=== PATIENT | male | born 1970 | race African-American/Black ===

== ENCOUNTER 2021-08-08 11:46 | Emergency (ER) | payer BC ==
[~2021-08-08] VITALS: Ht 195.6 cm; Wt 134.9 kg
[2021-08-08] MEDS: IV NORMAL SALINE 1,000ML 1,000 ML IV SCH (12:18)
[2021-08-08] MEDS: ASPIRIN CHEWABLE 81 MG TABLET. PO ONE (12:21)
--- NOTE | 2021-08-08 12:35 | PHYS DOC ---
General Adult EDM: Chief Complaint: CHEST PAIN HPI: HPI: Patient is a 50-year-old male who presents to the emergency department for chest tightness. Patient reports that he has been having chest pain over several days. He rates it 8 out of 10. It is generalized. Worse with cough and movement. It is relieved when he relaxes. He reports that he has experienced a nonproductive cough and shortness of breath since having COVID in November of last year. He is also an occasional smoker. Denies any medical history. He denies fever, nausea, vomiting. Review of Systems: Review of Systems: Constitutional: See HPI Respiratory: See HPI Cardiovascular: See HPI GI: See HPI Musculoskeletal: See HPI Current Medications: Current Meds: Current Medications Medications (Trade) Dose Ordered Sig/Luigi Start Time Stop Time Status Last Admin Dose Admin Aspirin (Aspirin Chewable) 324 mg 1X ONCE 08/08/21 12:15 08/08/21 12:16 DC 08/08/21 12:21 324 MG Sodium Chloride 1,000 ml @ 100 mls/hr Q10H 08/08/21 12:15 08/08/21 22:14 08/08/21 12:18 100 MLS/HR Allergies: Allergies: Allergies Coded Allergies Type Severity Reaction Last Updated Verified No Known Drug Allergies 08/08/21 No Physical Exam: PE: Constitutional: Well developed, well nourished, no acute distress, non-toxic appearance. [] HENT: Normocephalic, atraumatic, bilateral external ears normal, oropharynx moist, no oral exudates, nose normal. [] Eyes: PERRL, EOMI, conjunctiva normal, no discharge. [] Neck: Normal range of motion, no tenderness, supple, no stridor. [] Cardiovascular:Heart rate regular rhythm, no murmur [] Lungs & Thorax: Bilateral breath sounds clear to auscultation [] Abdomen: Bowel sounds normal, soft, no tenderness, no masses, no pulsatile masses. [] Skin: Warm, dry, no erythema, no rash. [] Back: No tenderness, normal range of motion Extremities: No tenderness, no cyanosis, no clubbing, ROM intact, no edema. [] Neurologic: Alert and oriented X 3, normal motor function, normal sensory function, no focal deficits noted. [] Psychologic: Affect normal, judgement normal, mood normal. [] Current Patient Data: Labs: Laboratory Tests Test 08/08/21 12:20 White Blood Count 8.2 x10^3/uL Red Blood Count 4.69 x10^6/uL Hemoglobin 13.5 g/dL Hematocrit 41.3 % Mean Corpuscular Volume 88 fL Mean Corpuscular Hemoglobin 29 pg Mean Corpuscular Hemoglobin Concent 33 g/dL Red Cell Distribution Width 13.1 % Platelet Count 196 x10^3/uL Neutrophils (%) (Auto) 70 % Lymphocytes (%) (Auto) 22 % Monocytes (%) (Auto) 6 % Eosinophils (%) (Auto) 2 % Basophils (%) (Auto) 1 % Neutrophils # (Auto) 5.7 x10^3uL Lymphocytes # (Auto) 1.8 x10^3/uL Monocytes # (Auto) 0.5 x10^3/uL Eosinophils # (Auto) 0.1 x10^3/uL Basophils # (Auto) 0.1 x10^3/uL D-Dimer (Daksha) 0.79 mg/L Sodium Level 142 mmol/L Potassium Level 2.8 mmol/L Chloride Level 107 mmol/L Carbon Dioxide Level 31 mmol/L Anion Gap 4 Blood Urea Nitrogen 10 mg/dL Creatinine 1.4 mg/dL Estimated GFR (Cockcroft-Gault) 64.9 BUN/Creatinine Ratio 7 Glucose Level 103 mg/dL Calcium Level 8.0 mg/dL Magnesium Level 2.2 mg/dL Total Bilirubin 1.1 mg/dL Aspartate Amino Transf (AST/SGOT) 30 U/L Alanine Aminotransferase (ALT/SGPT) 42 U/L Alkaline Phosphatase 109 U/L Troponin I High Sensitivity 15 ng/L Total Protein 6.4 g/dL Albumin 3.1 g/dL Albumin/Globulin Ratio 0.9 Current Medications Medications (Trade) Dose Ordered Sig/Luigi Route PRN Reason Start Time Stop Time Status Last Admin Dose Admin Aspirin (Aspirin Chewable) 324 mg 1X ONCE PO 08/08/21 12:15 08/08/21 12:16 DC 08/08/21 12:21 Sodium Chloride 1,000 ml @ 100 mls/hr Q10H IV 08/08/21 12:15 08/08/21 22:14 08/08/21 12:18 Iohexol (Omnipaque 350 Mg/ml) 100 ml 1X ONCE IV 08/08/21 13:45 08/08/21 13:50 DC 08/08/21 13:56 Potassium Chloride 100 ml @ 50 mls/hr Q1H IV 08/08/21 14:30 08/08/21 16:29 Potassium Chloride (Klor-Con) 30 meq 1X ONCE PO 08/08/21 14:30 08/08/21 14:31 DC EKG: EKG: EKG performed by ER staff at 1211 shows sinus rhythm, no STEMI read by Dr. Zelaya [] Radiology/Procedures: Radiology/Procedures: []PROCEDURE: CT ANGIOGRAPHY CHEST EXAMINATION: CTA Chest With IV contrast INDICATION:50 years, Male, chest pain, elevated d-dimer, evaluate for pulmonary embolism. COMPARISON: None. TECHNIQUE: Spiral CTA was obtained from the jugular notch through the posterior costophrenic recess. 3-D MIPS, sagittal and coronal reformats were obtained. Exposure: One or more of the following individualized dose reduction techniques were utilized for this examination: 1. Automated exposure control 2. Adjustment of the mA and/or kV according to patient size 3. Use of iterative reconstruction technique. FINDINGS: LUNGS/PLEURA: Central airways are patent. Linear atelectatic changes in the right lower lobe. No focal consolidation, pleural effusion or pneumothorax. No suspicious pulmonary nodule. Calcified granulomas in the right middle and lower lobes. MEDIASTINUM: No pathologic mediastinal or hilar adenopathy. Multiple calcified coronary lymph nodes. The thoracic aorta and pulmonary arteries are normal in caliber. The heart is normal in size. No pericardial effusion. No detectable calcified coronary atherosclerosis. The visualized thyroid and the esophagus are unremarkable. AXILLA/SOFT TISSUE: No supraclavicular or axillary adenopathy. Regional soft tissues are within normal limits. UPPER ABDOMEN: Post Chuy-en-Y gastric bypass. BONES: No evidence of acute fractures or aggressive osseous lesions. IMPRESSION: No pulmonary embolism. No acute intrathoracic abnormality. Electronically signed by: Ama Baltazar MD (08/08/2021 2:31 PM) [facility] DICTATED AND SIGNED BY: AMA BALTAZAR MD DATE: 08/08/21 1427 PROCEDURE: CHEST PA & LATERAL XR CHEST 2V History: Reason: SOA, chest pain / Spl. Instructions: / History: Comparison: None. Findings: Mild ill-defined bibasilar opacities. No pleural effusion. No pneumothorax. Normal heart size. Impression: 1. Mild bibasilar ill-defined opacities, may represent atelectasis or developing infiltrates. If persistent clinical concern, recommend follow-up. Electronically signed by: Thomas Snow DO (08/08/2021 12:46 PM) [id number] DICTATED AND SIGNED BY: THOMAS SNOW DO DATE: 08/08/21 1246 CC: ANUPAMA RAMIREZ APRN; YESY ZELAYA MD; SANDRA SOSA ~ CC: ANUPAMA RAMIREZ APRN; YESY ZELAYA MD; SANDRA SOSA ~ Heart Score: C/O Chest Pain: Yes HEART Score for Chest Pain: HEART Score for Chest Pain Response (Comments) Value History Slighlty/Non-Suspicious 0 ECG Normal 0 Age >45 - < 65 1 Risk Factors No Risk Factors 0 Troponin < Normal Limit 0 Total 1 Risk Factors: Risk Factors: DM, Current or recent (<one month) smoker, HTN, HLP, family history of CAD, obesity. Risk Scores: Score 0 - 3: 2.5% MACE over next 6 weeks - Discharge Home Score 4 - 6: 20.3% MACE over next 6 weeks - Admit for Clinical Observation Score 7 - 10: 72.7% MACE over next 6 weeks - Early Invasive Strategies Course & Med Decision Making: Course & Med Decision Making Pertinent Labs and Imaging studies reviewed. (See chart for details) [] Patient presents to the emergency department for generalized chest tightness with the cough and shortness of breath that started 1 week ago. He reports that his shortness of breath and cough have been going on for almost a year. Work- up in the ER consisted of blood work including troponin, EKG and chest x-ray. Patient's CBC was unremarkable, potassium was 2.8 and this was replaced in the emergency department, normal magnesium. D-dimer was slightly elevated 0.[address] angio of his chest was ordered to rule out PE. CT angio of chest was negative for any acute findings. Patient did not have an elevated troponin and his troponin was 15. Chest pain started a week ago therefore no need for delta troponins. Patient's heart score is 1. Chest x-ray shows mild bibasilar opacities, patient will be treated with an antibiotic. He is advised to use albuterol inhaler as needed. Advised to eat potassium rich foods. I discussed with patient all findings and diagnostic testing as well as the need to follow- up with PCP for further evaluation and treatment or return to the ER if any new or worsening symptoms. Strict return precautions were also discussed at length. Patient voiced understanding and agreement with the plan. Patient is hemodynamically stable at the time of disposition. Dragon Disclaimer: Dragon Disclaimer: This electronic medical record was generated, in whole or in part, using a voice recognition dictation system. Departure Departure: Impression: Primary Impression: Pneumonia Qualified Codes: J18.9 - Pneumonia, unspecified organism Disposition: HOME / SELF CARE / HOMELESS Condition: GOOD Referrals: SANDRA SOSA (PCP) Patient Instructions: Pneumonia, Adult Additional Instructions: You are seen in the emergency department today for chest pain. You appear to have bilateral pneumonia should be treated with an antibiotic. Please start and finish the antibiotic completely. You are being discharged home to the albuterol inhaler that you can use as needed for shortness of breath or wheezing. Your potassium was low in the emergency department and this was replaced with supplementation. Please make sure that you are eating potassium rich foods at home like green leafy vegetables and bananas. Please follow-up with your primary care provider tomorrow regarding your ER visit. Return to the emergency department if you develop worsening of your shortness of breath, chest pain, high fevers refractory to treatment, tractable nausea or vomiting, weakness. Scripts Albuterol Sulfate (PROAIR HFA INHALER) 8.5 Gm Hfa.aer.ad 2 PUFF IH PRN Q4-6HRS PRN for wheezing for 21 Days, #1 INHALER 0 Refills as needed for wheezing Prov: ANUPAMA RAMIREZ APRN 08/08/21 Azithromycin (AZITHROMYCIN TABLET) 250 Mg Tablet 1 PKG PO UD for pneumonia for 5 Days, #6 TAB 0 Refills 2 the first day followed by 1 for days 2-5 Prov: ANUPAMA RAMIREZ APRN 08/08/21 ANUPAMA RAMIREZ APRN Aug 08, 2021 12:35
[2021-08-08 12:42] LABS: BASO # 0.1 x10^3/uL (0.0-0.2); BASO % 1 % (0-3); EOS # 0.1 x10^3/uL (0.0-0.7); EOS % 2 % (0-3); HEMATOCRIT 41.3 % (39.0-53.0); HEMOGLOBIN 13.5 g/dL (13.0-17.5); LYMPH # 1.8 x10^3/uL (1.0-4.8); LYMPH % 22 % (24-48); MEAN CORPUSCULAR HEMOGLOBIN 29 pg (25-35); MEAN CORPUSCULAR HGB CONC 33 g/dL (31-37); MEAN CORPUSCULAR VOLUME 88 fL (79-100); MONO # 0.5 x10^3/uL (0.0-1.1); MONO % 6 % (0-9); NEUT # 5.7 x10^3uL (1.8-7.7); NEUT % 70 % (31-73); PLATELET COUNT 196 x10^3/uL (140-400); RED BLOOD COUNT 4.69 x10^6/uL (4.30-5.70); RED CELL DISTRIBUTION WIDTH 13.1 % (11.5-14.5); WHITE BLOOD COUNT 8.2 x10^3/uL (4.0-11.0)
--- NOTE | 2021-08-08 12:49 | RAD ---
XR CHEST 2V History: Reason: SOA, chest pain / Spl. Instructions: / History: Comparison: None. Findings: Mild ill-defined bibasilar opacities. No pleural effusion. No pneumothorax. Normal heart size. Impression: 1. Mild bibasilar ill-defined opacities, may represent atelectasis or developing infiltrates. If per sistent clinical concern, recommend follow-up. Electronically signed by: Thomas Snow DO (08/08/2021 12:46 PM) [id number]
[2021-08-08 13:06] LABS: ALBUMIN 3.1 g/dL (3.4-5.0); ALBUMIN/GLOBULIN RATIO 0.9 (1.0-1.7); CREATININE 1.4 mg/dL (0.7-1.3); GFR 64.9; TOTAL BILIRUBIN 1.1 mg/dL (0.2-1.0); TOTAL PROTEIN 6.4 g/dL (6.4-8.2)
[2021-08-08 13:09] LABS: POTASSIUM 2.8 mmol/L (3.5-5.1)
[2021-08-08] MEDS: IOHEXOL 350 MG/ML 100 ML VIAL. IV ONE (13:56)
[2021-08-08 14:28] VITALS: BP 170/91
[2021-08-08] MEDS ORDERED: POTASSIUM CHLORIDE 20MEQ 100 ML IV SCH (14:30)
--- NOTE | 2021-08-08 14:33 | RAD ---
EXAMINATION: CTA Chest With IV contrast INDICATION:50 years, Male, chest pain, elevated d-dimer, evaluate for pulmonary embolism. COMPARISON: None. TECHNIQUE: Spiral CTA was obtained from the jugular notch through the posterior costophrenic recess. 3-D MIPS, sagittal and coronal reformats were obtained. Exposure: One or more of the following individualized dose reduction techniques were utilized for thi s examination: 1. Automated exposure control 2. Adjustment of the mA and/or kV according to patient size 3. Use of iterative reconstruction technique. FINDINGS: LUNGS/PLEURA: Central airways are patent. Linear atelectatic changes in the right lower lobe. No foca l consolidation, pleural effusion or pneumothorax. No suspicious pulmonary nodule. Calcified granulom as in the right middle and lower lobes. MEDIASTINUM: No pathologic mediastinal or hilar adenopathy. Multiple calcified coronary lymph nodes. The thoracic aorta and pulmonary arteries are normal in caliber. The heart is normal in size. No johny cardial effusion. No detectable calcified coronary atherosclerosis. The visualized thyroid and the es ophagus are unremarkable. AXILLA/SOFT TISSUE: No supraclavicular or axillary adenopathy. Regional soft tissues are within jeana l limits. UPPER ABDOMEN: Post Chuy-en-Y gastric bypass. BONES: No evidence of acute fractures or aggressive osseous lesions. IMPRESSION: No pulmonary embolism. No acute intrathoracic abnormality. Electronically signed by: German Baltazar MD (08/08/2021 2:31 PM) [facility]
[2021-08-08] MEDS ORDERED: ALBU2.5V8 IH (14:40)
[2021-08-08] MEDS ORDERED: AZIT250T6 PO (14:40)
[2021-08-08] MEDS: POTASSIUM CHLORIDE 10 MEQ TABLET.ER. PO ONE (14:43)
[2021-08-08] MEDS: POTASSIUM CHLORIDE 20 MEQ TABLET.ER. PO ONE (14:51)
--- NOTE | 2021-08-08 21:42 | EKG ---
[address] [address] Test Date: 2021-08-08 Test Time: 11:56:39 Pat Name: VELVET MARTIN Department: Room: Gender: M Second Officer: RICHY : 1970 Requested By: ANUPAMA RAMIREZ Order Number: [id number] Reading MD: Mitchell Rivera Measurements Intervals [place] Rate: 55 P: 39 ND: 208 QRS: 11 QRSD: 108 T: 104 QT: 434 QTc: 417 Interpretive Statements Cannot analyze ECG CHEST LEAD(S) MISSING! NON SPECIFIC ST-T WAVE CHANGES Electronically Signed On 08-10-2021 17:02:21 CDT by Mitchell Rivera
== END 2021-08-08 14:55 | disposition home or self-care (01) ==
LOC: ER 11:46
DX: J18.9 Pneumonia, unspecified organism (principal)
CPT/HCPCS: 36415; 71046; 71275; 80053; 83735; 84484; 85025; 85379; 93005; 96360; 96361; 99285; J7030; Q9967